=== PATIENT | female | born 1995 | race Caucasian/White ===

== ENCOUNTER 2017-01-22 13:31 | Emergency (ER) | payer OTHER ==
[~2017-01-22] VITALS: Ht 160 cm; Wt 49.9 kg
[~2017-01-22 13:31] MED LIST: ADDERALL 10 MG10 MG; IRON256 MG PO; MAGNESIUM OXID200 MG PO; METRONIDAZOLE500 M4 PO; NAUSEA MEDICATION; NORCO 5-325 TA1 EACH PO; NORFLEX100 MG PO; PENICILLIN V P500 MG PO; PRENATAL PO; TRAMADOL 50 MG50 MG PO; ZOFRAN ODT4 MG PO
[2017-01-22 13:32] VITALS: BP 127/78
[2017-01-22] MEDS ORDERED: PREDNISONE 20 M20 MG PO (13:57)
[2017-01-22] MEDS ORDERED: MOBIC15 MG PO (13:57)
[2017-01-22] MEDS ORDERED: PENICILLIN V P500 MG PO (13:57)
== END 2017-01-22 14:08 | disposition home or self-care (01) ==
LOC: ER 13:31
DX: J02.0 Streptococcal pharyngitis (principal); Z88.5 Allergy status to narcotic agent; Z88.2 Allergy status to sulfonamides; Z88.8 Allergy status to other drugs, medicaments and biological substances; F10.99 Alcohol use, unspecified with unspecified alcohol-induced disorder

== ENCOUNTER 2018-09-19 14:37 | Emergency (ER) | payer OTHER ==
[~2018-09-19] VITALS: Ht 160 cm; Wt 59.0 kg
[~2018-09-19 14:37] MED LIST changes: +MOBIC15 MG PO; +PREDNISONE 20 M20 MG PO
[2018-09-19] MEDS ORDERED: BUPRENORPHINE HC8 MG PO (15:10)
[2018-09-19 15:42] LABS: MONOCYTES 7.2 % (1.0-8.0); PLATELET COUNT 218 thou/uL (150-400); RDW 12.4 % (10.5-14.5)
[2018-09-19 15:44] LABS: ABSOLUTE NEUTROPHILS 4.1 thou/uL (1.4-8.2); BASOPHILS 0.5 % (0.0-2.0); EOSINOPHILS 3.2 % (0.0-3.0); HEMATOCRIT 37.6 % (37.0-47.0); HEMOGLOBIN 13.3 gm/dL (12.0-15.0); LYMPHOCYTES 22.4 % (24.0-44.0); MCH 33.5 pg (26.0-34.0); MCHC 35.4 g/dL (28.0-37.0); MCV 94.6 fL (80.0-100.0); POLYS 66.7 % (36.0-66.0); RBC 3.97 mil/uL (4.20-5.00); WBC 6.1 thou/uL (4.0-11.0)
[2018-09-19 16:05] LABS: CALCIUM 8.6 mg/dL (8.5-10.1); CREATININE 0.6 mg/dL (0.6-1.0); POTASSIUM 3.3 mmol/L (3.5-5.1)
[2018-09-19 17:32] LABS: URINE BILIRUBIN NEGATIVE (Negative); URINE BLOOD NEGATIVE (Negative); URINE CLARITY CLEAR; URINE COLOR YELLOW; URINE GLUCOSE-RANDOM* NEGATIVE (Negative); URINE KETONES NEGATIVE (Negative); URINE NITRITE-REFLEX NEGATIVE (Negative); URINE PROTEIN (DIPSTICK) NEGATIVE (Negative); URINE UROBILINOGEN 0.2 E.U./dl (0.2-1.0)
[2018-09-19 17:33] LABS: URINE LEUKOCYTES-REFLEX 1+ (Negative)
[2018-09-19 17:50] LABS: AMP/METHAMP Negative (Negative); BARBITURATES Negative (Negative); BENZODIAZEPINES Negative (Negative); COCAINE Negative (Negative); METHADONE Negative (Negative); OPIATES Negative (Negative); PCP Negative (Negative)
[2018-09-19 17:58] VITALS: BP 127/75
[2018-09-19 18:49] LABS: SQUAMOUS >10 Many /LPF (0-3)
[2018-09-19 18:50] LABS: CASTS None Seen /LPF (None Seen); CRYSTALS None Seen /LPF (None Seen); URINE RBC 0-2 Rare /HPF (0-2); URINE WBC-REFLEX 0-5 Rare /HPF (0-5)
== END 2018-09-19 18:00 | disposition home or self-care (01) ==
LOC: ER 14:37
PROVIDERS: Physician Assistant
DX: Z71.1 Person with feared health complaint in whom no diagnosis is made (principal); Z88.5 Allergy status to narcotic agent; Z88.2 Allergy status to sulfonamides; Z88.8 Allergy status to other drugs, medicaments and biological substances; Z79.899 Other long term (current) drug therapy; Z3A.17 17 weeks gestation of pregnancy

== ENCOUNTER 2020-06-14 17:50 | Emergency (ER) | payer OTHER ==
[~2020-06-14] VITALS: Ht 170.2 cm; Wt 81.7 kg
[~2020-06-14 17:50] MED LIST changes: +BUPRENORPHINE HC8 MG PO
[2020-06-14 18:18] LABS: URINE BILIRUBIN NEGATIVE (Negative); URINE BLOOD NEGATIVE (Negative); URINE CLARITY CLEAR; URINE COLOR YELLOW; URINE GLUCOSE-RANDOM* NEGATIVE (Negative); URINE KETONES NEGATIVE (Negative); URINE LEUKOCYTES-REFLEX NEGATIVE (Negative); URINE NITRITE-REFLEX NEGATIVE (Negative); URINE PROTEIN (DIPSTICK) NEGATIVE (Negative); URINE SPECIFIC GRAVITY 1.025 (1.005-1.035)
[2020-06-14 19:07] VITALS: BP 122/70
== END 2020-06-14 19:07 | disposition home or self-care (01) ==
LOC: ER 17:50
PROVIDERS: Physician Assistant
DX: L91.8 Other hypertrophic disorders of the skin (principal); Z32.01 Encounter for pregnancy test, result positive; Z79.899 Other long term (current) drug therapy; Z88.2 Allergy status to sulfonamides; Z88.5 Allergy status to narcotic agent; Z88.8 Allergy status to other drugs, medicaments and biological substances

== ENCOUNTER 2020-11-07 20:48 | Emergency (ER) | payer OTHER ==
[~2020-11-07] VITALS: Ht 160 cm; Wt 63.5 kg
[2020-11-07 21:00] VITALS: BP 118/57
[2020-11-07] MEDS ORDERED: SUBOXONE 8 MG-1 EAC3 SUBLING (21:04)
[2020-11-07 21:22] LABS: URINE BILIRUBIN NEGATIVE (Negative); URINE BLOOD 1+ (Negative); URINE CLARITY CLEAR; URINE COLOR YELLOW; URINE GLUCOSE-RANDOM* NEGATIVE (Negative); URINE KETONES NEGATIVE (Negative); URINE LEUKOCYTES-REFLEX TRACE (Negative); URINE NITRITE-REFLEX NEGATIVE (Negative); URINE PROTEIN (DIPSTICK) NEGATIVE (Negative); URINE SPECIFIC GRAVITY >= 1.030 (1.005-1.035); URINE UROBILINOGEN 0.2 E.U./dl (0.2-1.0)
[2020-11-07 21:30] LABS: SQUAMOUS >10 Many /LPF (0-3); URINE WBC-REFLEX 0-5 Rare /HPF (0-5)
[2020-11-07 21:31] LABS: BACTERIA-REFLEX 1-9 Few /HPF (None Seen); CASTS None Seen /LPF (None Seen); CRYSTALS None Seen /LPF (None Seen); URINE RBC 0-2 Rare /HPF (0-2)
== END 2020-11-07 22:12 | disposition home or self-care (01) ==
LOC: ER 20:48
PROVIDERS: Emergency Medicine
DX: N76.0 Acute vaginitis (principal); Z79.899 Other long term (current) drug therapy; Z88.2 Allergy status to sulfonamides; Z88.5 Allergy status to narcotic agent; Z88.8 Allergy status to other drugs, medicaments and biological substances